=== PATIENT | male | born 2005 | race Caucasian/White ===

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

== ENCOUNTER 2024-07-13 12:37 | Emergency (ER) | payer OTHER ==
[2024-07-13] MEDS ORDERED: Ibuprofen 800 MG TAB ONE (13:21)
== END 2024-07-13 14:14 | disposition home or self-care (01) ==
LOC: MADERS 12:37
DX: M25.511 Pain in right shoulder (principal); F17.290 Nicotine dependence, other tobacco product, uncomplicated
CPT/HCPCS: 99283